=== PATIENT | female | born 1940 | race Caucasian/White ===

== ENCOUNTER 2020-04-13 05:56 | Day surgery (SDC) | payer MEDICARE ==
[~2020-04-13] VITALS: Ht 154.9 cm; Wt 43.1 kg
[2020-04-13] MEDS ORDERED: SODIUM CHLORIDE 0.9% 1000ML 1,000 ML IV ONE (06:17)
[2020-04-13 07:29] VITALS: BP 171/73
[2020-04-13] MEDS ORDERED: LEVO150 PO (07:32)
[2020-04-13] MEDS ORDERED: PROPOFOL 10 MG/ML 20ML VIAL IV ONE ×2 (09:20→09:21)
[2020-04-13] MEDS ORDERED: TRIAMCINOLONE ACETONIDE 40 MG/ML 1ML VIAL IM SCH (09:45)
[2020-04-13 09:50] VITALS: BP 101/52
[2020-04-13 09:55] VITALS: BP 112/49
[2020-04-13 10:00] VITALS: BP 130/64
[2020-04-13 10:05] VITALS: BP 138/75
== END 2020-04-13 10:37 | disposition home or self-care (01) ==
LOC: ENDO 05:56 → DAH 05:56 → ENDO 10:37
PROVIDERS: ATTEND Internal Medicine
DX: K22.2 Esophageal obstruction (principal); Z20.822 Contact with and (suspected) exposure to COVID-19; R63.4 Abnormal weight loss; E89.0 Postprocedural hypothyroidism; Z85.850 Personal history of malignant neoplasm of thyroid; Z79.890 Hormone replacement therapy; Z98.49 Cataract extraction status, unspecified eye; Z68.1 Body mass index [BMI] 19.9 or less, adult
CPT/HCPCS: 43201; 43202; 43220; A4215 ×2; A4216; A4221; A4222; A4223; A4606; A4620; A4657; A4663; C9803; J2704 ×2; J3301; J7030; U0003; 88305